=== PATIENT | male | born 1960 | race Caucasian/White ===

== ENCOUNTER 2019-08-18 12:35 | Emergency (ER) | payer OTHER ==
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
== END 2019-08-18 15:12 | disposition home or self-care (01) ==
LOC: ER 12:35
DX: S16.1XXA Strain of muscle, fascia and tendon at neck level, initial encounter (principal); M54.12 Radiculopathy, cervical region; M25.512 Pain in left shoulder; M79.622 Pain in left upper arm; V87.2XXA Person injured in collision between car and pick-up truck or van (traffic), initial encounter; Y92.411 Interstate highway as the place of occurrence of the external cause; I10 Essential (primary) hypertension; E11.9 Type 2 diabetes mellitus without complications
CPT/HCPCS: 72050; 99284